=== PATIENT | female | born 1975 | race African-American/Black ===

== ENCOUNTER 2025-05-27 09:14 | Emergency (ER) | payer SELFPAY ==
[~2025-05-27] VITALS: Ht 165.1 cm; Wt 70.0 kg
[2025-05-27 09:21] VITALS: O2SAT 100
[2025-05-27] MEDS ORDERED: AMOX-494 MT (10:03)
[2025-05-27 10:29] VITALS: BP 120/79; PULSE 69; RESP 16; TEMP 37.1; O2SAT 100
== END 2025-05-27 10:29 | disposition home or self-care (01) ==
LOC: ER 09:14
DX: H66.91 Otitis media, unspecified, right ear (principal); Z55.6 Problems related to health literacy
CPT/HCPCS: 81025; 99283